=== PATIENT | female | born 1965 | race Caucasian/White ===

== ENCOUNTER 2022-01-19 08:18 | Inpatient (IN) ==
[2022-01-19 09:18] LABS: Mean Corpuscular Hemoglobin 28.8 pg (28.0-33.3); Red Cell Distribution Width 19.2 % (11.5-14.5)
[2022-01-19 09:20] LABS: Hematocrit 24.4 % (35.3-44.9); Hemoglobin 7.7 g/dL (11.5-15.4); Immature Platelets 1.6 % (1.1-6.1); Mean Corpuscular HGB Conc 31.6 g/dL (31.6-35.5); Mean Corpuscular Volume 91.4 fL (83.0-100.0); Mean Platelet Volume 9.1 fL (9.4-12.4); Nucleated Red Blood Cells 0.1 /100 WBC (0); Red Blood Count 2.67 M/mcL (3.82-4.97); White Blood Count 22.3 K/mcL (4.3-11.1)
[2022-01-19 09:34] LABS: Platelet Count 68 K/mcL (140-400)
[2022-01-19 09:35] LABS: Prothrombin Time 11.4 Seconds (9.4-12.1)
[2022-01-19 09:38] LABS: Activated Partial Thrombo Time 29.5 Seconds (26.0-36.0)
[2022-01-19 09:44] LABS: Alanine Aminotransferase 20 Units/L (7-52); Albumin 3.3 g/dL (3.5-5.7); Albumin/Globulin Ratio 1.3 (1.1-2.2); Anisocytosis 2+ (Not Present); Aspartate Amino Transferase 13 Units/L (13-39); BUN/Creatinine Ratio 11 (6-26); Bilirubin,Indirect 0.2 mg/dL (0.0-1.0); Bilirubin,Total 0.2 mg/dL (0.3-1.0); Blood Urea Nitrogen 10 mg/dL (6-20); Carbon Dioxide 19 mEq/L (23-29); Chloride 108 mEq/L (98-107); Globulin 2.6 g/dL (2.4-3.5); Monocytes # 0.9 K/mcL (0.0-1.3); Neutrophils # 18.1 K/mcL (1.6-8.9); Platelet Estimate Decreased (Normal); Potassium 3.7 mEq/L (3.5-5.1); Reactive Lymphocytes Present (Not Present); Sodium 138 mEq/L (136-145); Total Protein 5.9 g/dL (6.4-8.9); eGFR For African Americans > 60 (> 60); eGFR For Non-African Americans > 60 (> 60)
[2022-01-19 09:46] LABS: Alkaline Phosphatase 163 Units/L (34-104); Glucose 86 mg/dL (70-105); Osmolality,Calculated 284 (280-300); Troponin I 0.27 ng/mL (< 0.04)
[2022-01-19] MEDS ORDERED: Isovue-370 500 ML BOTTLE IVP ONE (09:48)
[2022-01-19] MEDS ORDERED: Aspirin 325 MG TABLET PO ONE (12:18)
[2022-01-19] MEDS ORDERED: *HR* Heparin 5,000 UNIT/ML VIAL IVP ONE (12:18)
[2022-01-19] MEDS ORDERED: *HR* Heparin 5,000 UNIT/ML VIAL IVP PRN ×3 (12:18→15:17)
[2022-01-19] MEDS ORDERED: Heparin 25,000UNIT/250ML 1/2NS 25,000 UNIT/250 ML IV.SOLN IVC SCH (12:30)
[2022-01-19] MEDS ORDERED: Ondansetron 4 MG/2 ML VIAL IVP PRN (13:34)
[2022-01-19] MEDS ORDERED: Naloxone 0.4 MG/ML INJ IVP PRN (13:34)
[2022-01-19] MEDS ORDERED: Acetaminophen 325 MG TABLET PO PRN (13:34)
[2022-01-19] MEDS ORDERED: Perflutren Lipid Microsphere 1.3 ML in 0.9 % Sodium Chloride 8.7 ML IVP PRN (15:17)
[2022-01-19] MEDS: Heparin 25,000UNIT/250ML 1/2NS 25,000 UNIT/250 ML IV.SOLN IVC SCH (15:55)
[2022-01-19] MEDS: *HR* Heparin 5,000 UNIT/ML VIAL IVP PRN (18:32)
[2022-01-19] MEDS ORDERED: Oxycodone Myristate [Xtampza Er] 9 MG Cap.Spr.12 PO PRN (19:59)
[2022-01-19] MEDS: *HR* OxyCODONE Immed Rel 5 MG TABLET PO PRN (20:20)
[2022-01-20 01:52] LABS: Nucleated Red Blood Cells 0.4 /100 WBC (0); Red Cell Distribution Width 19.2 % (11.5-14.5)
[2022-01-20 01:54] LABS: Basophils % 0.5 %; Hematocrit 23.1 % (35.3-44.9); Hemoglobin 7.5 g/dL (11.5-15.4); Immature Granulocytes % 10.2 % (0-4); Lymphocytes % 7.6 %; Mean Corpuscular HGB Conc 32.5 g/dL (31.6-35.5); Mean Corpuscular Volume 89.2 fL (83.0-100.0); Mean Platelet Volume 10.2 fL (9.4-12.4); Monocytes # 1.9 K/mcL (0.0-1.3); Monocytes % 6.9 %; Red Blood Count 2.59 M/mcL (3.82-4.97); Segmented Neutrophils % 74.8 %; White Blood Count 28.1 K/mcL (4.3-11.1)
[2022-01-20 02:10] LABS: BUN/Creatinine Ratio 13 (6-26); Blood Urea Nitrogen 13 mg/dL (6-20); Calcium 8.7 mg/dL (8.6-10.3); Carbon Dioxide 21 mEq/L (23-29); Chloride 107 mEq/L (98-107); Glucose 79 mg/dL (70-105); Osmolality,Calculated 285 (280-300); Potassium 3.9 mEq/L (3.5-5.1); Sodium 138 mEq/L (136-145); eGFR For African Americans > 60 (> 60); eGFR For Non-African Americans 57 (> 60)
[2022-01-20 02:14] LABS: Troponin I 4.01 ng/mL (< 0.04)
[2022-01-20 02:25] LABS: Basophils # 0.1 K/mcL (0.0-0.2); Lymphocytes # 2.1 K/mcL (0.6-4.6); Platelet Count 55 K/mcL (140-400)
[2022-01-20 02:39] LABS: Anisocytosis 2+ (Not Present); Poikilocytosis 1+ (Not Present); Reactive Lymphocytes Present (Not Present)
[2022-01-20 02:40] LABS: Platelet Estimate Decreased (Normal); Polychromasia 1+ (Not Present)
[2022-01-20] MEDS: *HR* OxyCODONE Immed Rel 5 MG TABLET PO PRN ×4 (03:46→22:26)
[2022-01-20] MEDS ORDERED: Aspirin Enteric Coated 81 MG Tablet PO SCH (10:45)
[2022-01-20] MEDS: *HR* Heparin 5,000 UNIT/ML VIAL IVP PRN (11:55)
[2022-01-20] MEDS: Metoprolol XL (24 HR) Succ 25 MG TAB.ER.24H PO SCH (12:25)
[2022-01-20] MEDS: Heparin 25,000UNIT/250ML 1/2NS 25,000 UNIT/250 ML IV.SOLN IVC SCH (16:08)
[2022-01-21 00:38] LABS: Mean Corpuscular Volume 89.5 fL (83.0-100.0); Red Cell Distribution Width 19.5 % (11.5-14.5)
[2022-01-21 00:40] LABS: Hematocrit 23.1 % (35.3-44.9); Hemoglobin 7.4 g/dL (11.5-15.4); Immature Platelets 2.3 % (1.1-6.1); Lymphocytes # 2.4 K/mcL (0.6-4.6); Mean Corpuscular Hemoglobin 28.7 pg (28.0-33.3); Nucleated Red Blood Cells 0.5 /100 WBC (0); Red Blood Count 2.58 M/mcL (3.82-4.97)
[2022-01-21 00:41] LABS: Platelet Count 41 K/mcL (140-400)
[2022-01-21 00:42] LABS: White Blood Count 39.1 K/mcL (4.3-11.1)
[2022-01-21 00:47] LABS: BUN/Creatinine Ratio 10 (6-26); Blood Urea Nitrogen 11 mg/dL (6-20); Calcium 8.5 mg/dL (8.6-10.3); Carbon Dioxide 21 mEq/L (23-29); Chloride 106 mEq/L (98-107); Glucose 101 mg/dL (70-105); Osmolality,Calculated 286 (280-300); Potassium 3.5 mEq/L (3.5-5.1); Sodium 138 mEq/L (136-145); eGFR For African Americans > 60 (> 60); eGFR For Non-African Americans 52 (> 60)
[2022-01-21] MEDS: *HR* Heparin 5,000 UNIT/ML VIAL IVP PRN (00:48)
[2022-01-21 00:57] LABS: Monocytes # 3.1 K/mcL (0.0-1.3); Neutrophils # 32.8 K/mcL (1.6-8.9)
[2022-01-21 00:58] LABS: Anisocytosis 2+ (Not Present); Platelet Estimate Decreased (Normal); Poikilocytosis 1+ (Not Present); Polychromasia 1+ (Not Present)
[2022-01-21 07:52] VITALS: BP 115/71; PULSE 80; TEMP 99.4; O2SAT 97
[2022-01-21] MEDS: Metoprolol XL (24 HR) Succ 25 MG TAB.ER.24H PO SCH (08:46)
[2022-01-21] MEDS ORDERED: *HR* Rivaroxaban 10 MG TABLET PO SCH (09:00)
== END 2022-01-21 11:00 | disposition home or self-care (01) | DRG 175 ==
LOC: EMEROOARM 08:18 → 2ANU 08:18 → SUATTDRO 12:57 → 2ANU 13:43
PROVIDERS: ADMIT Internal Medicine; ATTEND Internal Medicine

== ENCOUNTER 2022-05-09 19:48 | Observation (INO) ==
[2022-05-09 22:12] LABS: Basophils % 0.2 %; Eosinophils # 0.1 K/mcL (0.0-0.6); Eosinophils % 0.4 %; Hematocrit 28.8 % (35.3-44.9); Hemoglobin 9.2 g/dL (11.5-15.4); Immature Granulocytes % 0.5 % (0-4); Lymphocytes % 7.6 %; Mean Corpuscular HGB Conc 31.9 g/dL (31.6-35.5); Mean Corpuscular Hemoglobin 22.9 pg (28.0-33.3); Mean Corpuscular Volume 71.8 fL (83.0-100.0); Mean Platelet Volume 8.7 fL (9.4-12.4); Monocytes # 0.8 K/mcL (0.0-1.3); Monocytes % 6.2 %; Neutrophils # 10.7 K/mcL (1.6-8.9); Platelet Count 252 K/mcL (140-400); Red Blood Count 4.01 M/mcL (3.82-4.97); Red Cell Distribution Width 19.9 % (11.5-14.5); Segmented Neutrophils % 85.1 %; White Blood Count 12.6 K/mcL (4.3-11.1)
[2022-05-09] MEDS ORDERED: 0.9 % Sodium Chloride 1,000 ML IV ONE (22:24)
[2022-05-09 22:34] LABS: Alanine Aminotransferase 144 Units/L (7-52); Albumin 3.1 g/dL (3.5-5.7); Albumin/Globulin Ratio 1.3 (1.1-2.2); Alkaline Phosphatase 320 Units/L (34-104); Aspartate Amino Transferase 117 Units/L (13-39); BUN/Creatinine Ratio 13 (6-26); Bilirubin,Direct 0.2 mg/dL (0.0-0.2); Bilirubin,Indirect 0.3 mg/dL (0.0-1.0); Bilirubin,Total 0.5 mg/dL (0.3-1.0); Blood Urea Nitrogen 12 mg/dL (6-20); Calcium 9.5 mg/dL (8.6-10.3); Carbon Dioxide 25 mEq/L (23-29); Chloride 100 mEq/L (98-107); Globulin 2.4 g/dL (2.4-3.5); Glucose 102 mg/dL (70-105); Lipase 49 Units/L (11-82); Osmolality,Calculated 272 (280-300); Potassium 3.9 mEq/L (3.5-5.1); Sodium 131 mEq/L (136-145); Total Protein 5.5 g/dL (6.4-8.9); eGFR For African Americans > 60 (> 60); eGFR For Non-African Americans > 60 (> 60)
[2022-05-09] MEDS ORDERED: Morphine Sulfate 2 MG/ML SYRINGE IVP ONE (23:52)
[2022-05-10 00:07] LABS: Magnesium 1.5 mg/dL (1.6-2.6)
[2022-05-10] MEDS ORDERED: Iopamidol - 370 500 ML MLS IVP ONE (00:15)
[2022-05-10 00:32] LABS: Bacteria,Urine Moderate per hpf (None-Few); Bilirubin,Urine Negative (Negative); Blood,Urine Large (Negative); Calcium Oxalate Crystals,Urine Present per hpf; Clarity,Urine Turbid (Clear); Color,Urine Colorless (Yellow); Glucose,Urine (UA) Normal (Normal); Ketones,Urine Negative (Negative); Leukocyte Esterase,Urine Large (Negative); Nitrite,Urine Positive (Negative); PH,Urine 6.5 pH Units (5.0-8.0); Protein,Urine 30 mg/dL (Neg-Trace); RBC,Urine 50-100 per hpf (0-3); Specific Gravity,Urine 1.005 (1.010-1.025); Squamous Epithelial Cell,Urine Few per hpf (None-Few); Urobilinogen,Urine Normal (Normal); WBC,Urine TNTC per hpf (0-3)
[2022-05-10] MEDS ORDERED: cefTRIAXone 1,000 MG in Water for inj. (sterile) 10 ML IVP ONE (01:29)
[2022-05-10] MEDS ORDERED: *HR* HYDROmorphone (PF) 1 MG/ML SYRINGE IVP STA (06:13)
[2022-05-10] MEDS ORDERED: Naloxone 0.4 MG/ML INJ IVP PRN (09:32)
[2022-05-10] MEDS ORDERED: Ondansetron 4 MG/2 ML VIAL IVP PRN (09:32)
[2022-05-10] MEDS ORDERED: Acetaminophen 325 MG TABLET PO PRN (09:32)
[2022-05-10] MEDS ORDERED: 0.9 % Sodium Chloride 1,000 ML IVC SCH (09:45)
[2022-05-10 10:52] LABS: INR 1.3; Prothrombin Time 14.4 Seconds (9.4-12.1)
[2022-05-10 11:38] LABS: Hepatitis B Surface Antigen Nonreactive (Nonreactive)
[2022-05-10] MEDS ORDERED: *HR* OxyCODONE Immed Rel 5 MG TABLET PO STA (11:38)
[2022-05-10] MEDS: Magnesium Oxide 400 MG TABLET PO SCH (12:05)
[2022-05-10 12:08] LABS: Hepatitis B Core IgM Nonreactive (Nonreactive)
[2022-05-10 12:10] LABS: Hepatitis A Antibody IgM Nonreactive (Nonreactive); Hepatitis C Virus Antibody Nonreactive (Nonreactive)
[2022-05-10] MEDS ORDERED: *HR* OxyCODONE ER (12 HR) 20 MG TABLET PO STA (15:00)
[2022-05-10] MEDS: *HR* Rivaroxaban 10 MG TABLET PO SCH (17:02)
[2022-05-10] MEDS: *HR* OxyCODONE Immed Rel 5 MG TABLET PO PRN (19:59)
[2022-05-10] MEDS: Gabapentin 300 MG CAPSULE PO SCH (20:00)
[2022-05-10] MEDS: OXYCODONE MYRISTATE 18 MG PO SCH (20:00)
[2022-05-10] MEDS ORDERED: OXYCODONE MYRISTATE 18 MG PO SCH (21:00)
[2022-05-11] MEDS: *HR* OxyCODONE Immed Rel 5 MG TABLET PO PRN ×4 (02:59→17:23)
[2022-05-11] MEDS: cefTRIAXone 1,000 MG in 0.9 % Sodium Chloride 10 ML IVP SCH (02:59)
[2022-05-11 03:52] LABS: Basophils % 0.3 %; Eosinophils # 0.1 K/mcL (0.0-0.6); Eosinophils % 0.6 %; Hematocrit 30.1 % (35.3-44.9); Hemoglobin 9.4 g/dL (11.5-15.4); Immature Granulocytes % 0.6 % (0-4); Lymphocytes % 7.6 %; Mean Corpuscular HGB Conc 31.2 g/dL (31.6-35.5); Mean Corpuscular Hemoglobin 22.6 pg (28.0-33.3); Mean Corpuscular Volume 72.4 fL (83.0-100.0); Mean Platelet Volume 8.8 fL (9.4-12.4); Monocytes # 0.8 K/mcL (0.0-1.3); Monocytes % 6.6 %; Neutrophils # 10.7 K/mcL (1.6-8.9); Platelet Count 269 K/mcL (140-400); Red Blood Count 4.16 M/mcL (3.82-4.97); Red Cell Distribution Width 20.2 % (11.5-14.5); Segmented Neutrophils % 84.3 %; White Blood Count 12.7 K/mcL (4.3-11.1)
[2022-05-11 04:12] LABS: BUN/Creatinine Ratio 11 (6-26); Blood Urea Nitrogen 9 mg/dL (6-20); Calcium 9.7 mg/dL (8.6-10.3); Carbon Dioxide 25 mEq/L (23-29); Chloride 104 mEq/L (98-107); Glucose 89 mg/dL (70-105); Magnesium 1.6 mg/dL (1.6-2.6); Osmolality,Calculated 278 (280-300); Potassium 3.7 mEq/L (3.5-5.1); Sodium 135 mEq/L (136-145); eGFR For African Americans > 60 (> 60); eGFR For Non-African Americans > 60 (> 60)
[2022-05-11 12:21] LABS: Alanine Aminotransferase 140 Units/L (7-52); Albumin 2.8 g/dL (3.5-5.7); Albumin/Globulin Ratio 1.1 (1.1-2.2); Alkaline Phosphatase 307 Units/L (34-104); Aspartate Amino Transferase 113 Units/L (13-39); Bilirubin,Direct 0.2 mg/dL (0.0-0.2); Bilirubin,Indirect 0.3 mg/dL (0.0-1.0); Bilirubin,Total 0.5 mg/dL (0.3-1.0); Globulin 2.6 g/dL (2.4-3.5); Total Protein 5.4 g/dL (6.4-8.9)
[2022-05-11] MEDS: Magnesium Oxide 400 MG TABLET PO SCH (12:38)
[2022-05-11] MEDS: Gabapentin 300 MG CAPSULE PO SCH ×2 (12:38→20:37)
[2022-05-11] MEDS: OXYCODONE MYRISTATE 18 MG PO SCH ×2 (12:39→20:30)
[2022-05-11] MEDS: *HR* Rivaroxaban 10 MG TABLET PO SCH (17:24)
[2022-05-11] MEDS: Lidocaine 4% CREAM (LMX) 5 GM TP PRN (20:37)
[2022-05-12] MEDS: *HR* OxyCODONE Immed Rel 5 MG TABLET PO PRN ×4 (02:48→17:39)
[2022-05-12] MEDS: cefTRIAXone 1,000 MG in 0.9 % Sodium Chloride 10 ML IVP SCH (02:48)
[2022-05-12 05:25] LABS: Basophils % 0.3 %; Eosinophils # 0.1 K/mcL (0.0-0.6); Eosinophils % 0.4 %; Hematocrit 28.3 % (35.3-44.9); Hemoglobin 8.9 g/dL (11.5-15.4); Immature Granulocytes % 0.6 % (0-4); Lymphocytes # 0.9 K/mcL (0.6-4.6); Lymphocytes % 6.6 %; Mean Corpuscular HGB Conc 31.4 g/dL (31.6-35.5); Mean Corpuscular Hemoglobin 22.8 pg (28.0-33.3); Mean Corpuscular Volume 72.4 fL (83.0-100.0); Mean Platelet Volume 9.5 fL (9.4-12.4); Monocytes # 0.9 K/mcL (0.0-1.3); Monocytes % 6.6 %; Neutrophils # 11.9 K/mcL (1.6-8.9); Platelet Count 295 K/mcL (140-400); Red Blood Count 3.91 M/mcL (3.82-4.97); Red Cell Distribution Width 20.2 % (11.5-14.5); Segmented Neutrophils % 85.5 %; White Blood Count 13.9 K/mcL (4.3-11.1)
[2022-05-12 05:45] LABS: Alanine Aminotransferase 116 Units/L (7-52); Albumin 2.9 g/dL (3.5-5.7); Albumin/Globulin Ratio 1.4 (1.1-2.2); Alkaline Phosphatase 365 Units/L (34-104); Aspartate Amino Transferase 77 Units/L (13-39); BUN/Creatinine Ratio 13 (6-26); Bilirubin,Total 0.4 mg/dL (0.3-1.0); Blood Urea Nitrogen 9 mg/dL (6-20); Calcium 9.3 mg/dL (8.6-10.3); Carbon Dioxide 27 mEq/L (23-29); Chloride 103 mEq/L (98-107); Globulin 2.1 g/dL (2.4-3.5); Glucose 113 mg/dL (70-105); Osmolality,Calculated 281 (280-300); Potassium 3.8 mEq/L (3.5-5.1); Sodium 136 mEq/L (136-145); eGFR For African Americans > 60 (> 60); eGFR For Non-African Americans > 60 (> 60)
[2022-05-12] MEDS: OXYCODONE MYRISTATE 18 MG PO SCH ×2 (07:42→20:34)
[2022-05-12] MEDS: Gabapentin 300 MG CAPSULE PO SCH ×2 (07:43→20:34)
[2022-05-12] MEDS: Magnesium Oxide 400 MG TABLET PO SCH (07:43)
[2022-05-12] MEDS: *HR* Rivaroxaban 10 MG TABLET PO SCH (17:01)
[2022-05-12] MEDS: Lidocaine 4% CREAM (LMX) 5 GM TP PRN (17:03)
[2022-05-13] MEDS: cefTRIAXone 1,000 MG in 0.9 % Sodium Chloride 10 ML IVP SCH (02:27)
[2022-05-13] MEDS: Lidocaine 4% CREAM (LMX) 5 GM TP PRN (02:29)
[2022-05-13] MEDS: *HR* OxyCODONE Immed Rel 5 MG TABLET PO PRN ×2 (02:32→09:53)
[2022-05-13 07:46] VITALS: BP 115/77; PULSE 91; TEMP 98.2; O2SAT 97
[2022-05-13] MEDS ORDERED: Piperacillin/Tazobactam 3.375 GM in 0.9 % Sodium Chloride Mini Bag 100 ML IVPB SCH (08:00)
[2022-05-21] MEDS ORDERED: Cyanocobalamin (B-12) 1,000 MCG/ML VIAL IM SCH (09:00)
== END 2022-05-13 11:08 | disposition home or self-care (01) ==
LOC: EMEROOARM 19:48 → 3ANU 19:48 → SUATTDRO 05-10 08:17 → 3ANU 05-10 09:58
PROVIDERS: ADMIT General Practice; ATTEND Internal Medicine